=== PATIENT | male | born 1965 | race Caucasian/White ===

== ENCOUNTER → 2022-09-21 | Outpatient (CLI) | payer OTHER ==
--- NOTE | 2022-09-21 14:22 | P.SLEEP ---
History of Present Illness DATE: 09/21/2022 CONSULTATION/NEW PATIENT EVALUATION HISTORY OF PRESENT ILLNESS/SLEEP-WAKE EVALUATION: 56-year-old gentleman had been evaluated in the sleep center for obstructive sleep apnea hypopnea syndrome. Patient has history of obstructive sleep apnea diagnosed in 2008. At that time it was complex sleep apnea with apnea-hypopnea index more than 80 times per hour. Patient was on treatment to with BiPAP. BiPAP unit is broken. SLEEP SCHEDULE: Usually sleep schedule from 10 PM to 5:45 AM on working days and from 11 PM to 7 AM on weekend. FALLING ASLEEP: No problems with the falling to sleep. DURING SLEEP: Patient has loud snoring, multiple awakenings from sleep. No history of hypnogogical hallucinations, sleep paralysis, or cataplexy. DURING THE DAY/WAKE STATE: In the morning patient wake up tired, falling asleep during the day. Fingal sleepiness scale is increased to 11. Usually patient doesn't take naps. PAST MEDICAL HISTORY: Hypertension, diabetes mellitus. PAST SURGICAL HISTORY: Lasic eye surgery. MEDICATIONS: Metformin 1000 mg twice a day, glimepiride 2 mg twice a day, lisinopril-hydrochlorothiazide 20-12.5 mg once a day. SOCIAL HISTORY: Negative for smoking, alcohol consumption occasional. FAMILY HISTORY: Hypertension, cancer, diabetes. REVIEW OF SYSTEMS: Loud snoring, multiple awakenings from sleep, sleepiness during the day. No fevers. No double vision. No recent chest pain. No shortness of breath. No abdominal pain. No bleeding episodes. No blood in urine. No seizu re episodes. PHYSICAL EXAMINATION: GENERAL: A pleasant patient without any distress. VITAL SIGNS: BP on 49/103 , HR 101 , RR 16 , weight 263.2 pounds, height 5 foot 10.5 inches, body mass index 37.2 . HEENT: PERRLA, EOMI. Evaluation of oropharynx showed tongue protrudes midline, low position of soft palate Mallampati 4. NECK: Supple. No JVD. Thyroid is not palpable. 20-1/4 inches in circumference. LUNGS: Clear to percussion and to auscultation. Good air exchange. No wheezing or rhonchi. HEART: S1, S2 regular. No murmurs, gallops or rubs. ABDOMEN: Soft and nontender. Bowel sounds are present. No organomegaly appreciated. Obese. EXTREMITIES: No clubbing or cyanosis. 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 Cranial nerves 2 to 7 intact. There is no fasciculation or atrophy noted. No focal deficits observed. ASSESSMENT: 1. Loud snoring, multiple awakenings from sleep, extremely low position of soft palate Mallampati 4, extremely wide neck 20-1/4 inches, history of obstructive sleep apnea. Obstructive sleep apnea hypopnea syndrome. 2. Obesity, BMI 37.2. 3. Hypertension. 4. Diabetes mellitus. 5 status post Lasix eye surgery in the past. PLAN: 1. Polysomnography for evaluation of patient's breathing during sleep. 2. CPAP/BiPAP titration if sleep study confirms obstructive sleep apnea- hypopnea syndrome. 3. Preferable position during sleep on the side. 4. No driving if patient feels any sleepiness. Patient is aware of civil and criminal liability for unsafe driving. 5. Sleep hygiene with regular sleep time for at least 7.5-8 hours. 6. Watching and losing weight. Thank you very much for referring this patient for consultation. Sincerely, Franki Laird MD, PhD, FAASM. Diplomat of [place] [employer], Sleep Medicine Board by [place] [employer] [place] [employer] Reexaminer of [facility] Sleep Note - Sleep Note Sleep Note: Temperature: Pulse Rate: Respiratory Rate: Blood Pressure: SpO2: Height: Weight: BMI: Neck Circumference:
== END ==
LOC: 3 N SLEEP 13:29
PROVIDERS: ATTEND Internal Medicine
DX: G47.33 Obstructive sleep apnea (adult) (pediatric) (principal); E66.9 Obesity, unspecified; I10 Essential (primary) hypertension; E11.9 Type 2 diabetes mellitus without complications; Z68.37 Body mass index [BMI] 37.0-37.9, adult; Z99.89 Dependence on other enabling machines and devices; Z79.84 Long term (current) use of oral hypoglycemic drugs; Z79.899 Other long term (current) drug therapy; Z98.890 Other specified postprocedural states
CPT/HCPCS: 99202

== ENCOUNTER 2022-12-12 19:48 | Outpatient (CLI) | payer OTHER | END 2022-12-13 06:00 | disposition home or self-care (01) | LOC: 3 N SLEEP 19:48 | PROVIDERS: ATTEND Internal Medicine | DX: G47.33 Obstructive sleep apnea (adult) (pediatric) (principal) | CPT/HCPCS: 95811 ==

== ENCOUNTER → 2023-03-01 | Outpatient (CLI) | payer OTHER ==
--- NOTE | 2023-03-01 15:16 | P.PN ---
Subjective DATE: 03/01/2023 FOLLOW UP VISIT. Patient with obstructive sleep apnea hypopnea syndrome return to sleep center for follow-up visit. Recently patient had sleep study which documented obstructive sleep apnea hypopnea syndrome. Patient was initiated on BPAP therapy and today is first visit after treatment was started. Patient was able to use BPAP equipment every night for the whole night. The patient does not have significant problems with the mask, PAP pressure and humidification. Alpine sleepiness scale is 8, which is normal, improved comparing with the Alpine Sleepiness Scale before treatment when it was 11. I checked information from BPAP unit. BPAP unit pressure maximal inspiratory pressure 21, minimal expiratory pressure 10, pressure-support 4, average pressure 14.4 over 10.4 cm H2O. Usage is 100% and 90 % for more then 4 hours, average 6.25 hours per night. Leak is slightly increased to 36.2 l/m, patient has beer and mustache. Apnea Hypopnea Index is 1.5, which is normal. MEDICATIONS:1. Metformin 1000 mg twice a day 2. Lisinopril/hydrochlorothiazide 20-12 0.5 mg once a day 3. Glimepiride 2 mg twice a day During physical exam: GENERAL: A pleasant patient without any distress. VITAL SIGNS: BP 152/83, HR 97, RR 16 , weight 267.6, temperature 97.8, oxygen saturation at room air 99 . HEENT: PERRLA, EOMI.low position of soft palate, Mallapati 4 . NECK: Supple. No JVD. LUNGS: Clear to percussion and to auscultation. Good air exchange. No wheezing or rhonchi. HEART: S1, S2 regular. ABDOMEN: Soft and nontender. Slightly obese EXTREMITIES: No clubbing or cyanosis. 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 No focal deficit. Impressions: 1. Severe obstructive sleep apnea-hypopnea syndrome, apnea-hypopnea index 100.0 . Patient demonstrated great compliance with treatment, benefiting from treatment, normal respiration on BiPAP. 2. Obesity, patient increased his weight on 4 pounds comparing with previous visit. 3. Diabetes mellitus. 4. Hypertension. 5. Status post Lasic eye surgery.. Plan: 1. Continue using PAP equipment every night for the whole night. 2. To change air filter at least 1-2 times per month. 3. PAP unit should stay lower then position of the head. 4. Advised patient to remove all remaining water from humidifier canister daily and make it dry after each usage. Refill canister with fresh distilled water before each usage. 5. Sleep hygiene with regular time in bed for at least 8 hours. 6. Precautions related to driving. No driving if feel any sleepiness. 7. I will maintain prescription for PAP supplies including mask, tube, filters. 8. Follow up visit in 6 months or earlier if patient has any problems. 9. Watching and losing weight. Thank you very much for allowing me to participate in the management of your patient. Franki Laird MD, PhD, FAASM. Diplomat of [place] [employer], Sleep Medicine Board by [place] [employer] Change Management Specialist of [facility] [place]
== END ==
LOC: 3 N SLEEP 14:35
PROVIDERS: ATTEND Internal Medicine
DX: G47.33 Obstructive sleep apnea (adult) (pediatric) (principal); E11.9 Type 2 diabetes mellitus without complications; E66.9 Obesity, unspecified; I10 Essential (primary) hypertension; Z98.890 Other specified postprocedural states; Z99.89 Dependence on other enabling machines and devices; Z79.84 Long term (current) use of oral hypoglycemic drugs
CPT/HCPCS: 99212

== ENCOUNTER → 2023-11-09 | Outpatient (CLI) | payer OTHER ==
[2023-11-09 11:13] VITALS: BP 150/88; PULSE 78; RESP 16; TEMP 98.1
--- NOTE | 2023-11-09 11:44 | P.PROGSL ---
Subjective DATE: 11/09/2023 FOLLOW UP VISIT. Patient with obstructive sleep apnea hypopnea syndrome return to sleep center for follow-up visit. Information from previous visit have been reviewed. Patient lost more than 20 pounds and using CPAP equipment less than before. Patient is using PAP equipment most of the nights, getting PAP supplies in time. The patient does not have significant problems with the mask, PAP unit and humidification. Mellen sleepiness scale is borderline 9. I checked information from PAP unit. PAP unit pressure maximal inspiratory pressure 21, minimal expiratory pressure 10, pressure support 4, average pressure 14.7/10.7 cm H2O. Usage is 50% for more then 4 hours, average 6 hours per night. Leak is significantly increased to 47 l/m. Apnea Hypopnea Index is 1.7, which is normal. MEDICATIONS have been reviewed, please see below. During physical exam: GENERAL: A pleasant patient without any distress. VITAL SIGNS: Please see below, weight is 246 lbs. HEENT: PERRLA, EOMI.low position of soft palate, Mallapati 4 . NECK: Supple. No JVD. LUNGS: Clear to percussion and to auscultation. Good air exchange. No wheezing or rhonchi. HEART: S1, S2 regular. ABDOMEN: Soft and nontender.[] EXTREMITIES: No clubbing or cyanosis. 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 No focal deficit. Impressions: 1. Obstructive sleep apnea-hypopnea syndrome. Patient demonstrated borderline compliance with treatment, benefiting from treatment. 2. Obesity, body mass index 35.2, patient lost 21 pounds comparing with previous visit. 3. Hypertension. 4. Diabetes mellitus. 5. Status post LASEK eye surgery. I changed maximal inspiratory pressure down to 18 cm of water. Plan: 1. Continue using PAP equipment every night for the whole night. To get new CPAP mask. 2. Sleep hygiene with regular time in bed for at least 7.5-8 hours 3. PAP unit should stay lower then position of the head. 4. Advised patient to remove all remaining water from humidifier canister daily and make it dry after each usage. Refill canister with fresh distilled water before each usage. 5. Watching and continue losing weight weight. 6. Precautions related to driving. No driving if feel any sleepiness. 7. I will maintain prescription for PAP supplies including mask, tube, filters. 8. Follow up visit in 6 months or earlier if patient has any problems. 9. After losing more weight we may consider to repeat sleep study to reevaluate patient breathing. Thank you very much for allowing me to participate in the management of your patient. Franki Laird MD, PhD, FAASM. Diplomat of [place] [employer], Sleep Medicine Board by [place] [employer] Aboriginal Liaison Officer of [facility] [place] Objective - Vital Signs Vital Signs: Vital Signs Temp 98.1 F 11/09/23 11:12 Pulse 78 11/09/23 11:12 Resp 16 11/09/23 11:12 BP 150/88 11/09/23 11:12 Pulse Ox 99 11/09/23 11:12 FiO2 Intake & Output 11/08/23 11/09/23 11/09/23 18:59 06:59 18:59 Weight 111.584 kg Home Medications: Home Medications Medication Instructions Recorded Confirmed Type Glimepiride 2 mg PO BID 11/09/23 11/09/23 History Lisinopril-Hctz 20-12.5 mg See Rx Instructions .ROUTE .COMPLEX 11/09/23 11/09/23 History [Zestoretic 20-12.5] metFORMIN HCL 1,000 mg PO BID 11/09/23 11/09/23 History
== END ==
LOC: 3 N SLEEP 11:03
PROVIDERS: ATTEND Internal Medicine
CPT/HCPCS: 99212

== ENCOUNTER 2024-09-03 07:15 | Day surgery (SDC) | payer OTHER ==
[2024-09-03 07:45] VITALS: TEMP 97.6
[2024-09-03] MEDS: LACTATED RINGERS 1,000 ML IV SCH (07:53)
[2024-09-03] MEDS: IV FLUID CONTINUATION 1,000 ML IV ONE (07:54)
[2024-09-03 07:55] LABS: Glucose,Whole Blood 161 mg/dL (70-110)
[2024-09-03] MEDS ORDERED: PROPOFOL 10 MG/ML 20 ML VIAL IV ONE (08:35)
--- NOTE | 2024-09-03 08:54 | P.PCN ---
Date of Procedure: 09/03/24 Procedure(s) Performed: BRIEF HISTORY: Patient is a 58-year-old pleasant white male scheduled for an elective colonoscopy as a part of screening for prior history of colon polyps. Last colonoscopy was in July 2020 and was noted to have tubular adenoma. PROCEDURE PERFORMED: Colonoscopy with snare polypectomy. PREOPERATIVE DIAGNOSIS: Screening for prior history of colon polyps.. IV sedation per Anesthesia. PROCEDURE: After informed consent was obtained, the patient, was brought into the endoscopy unit. IV sedation was administered by Anesthesia under continuous monitoring. Digital rectal examination was normal. Initially the Olympus CF-160 flexible video colonoscope was then inserted in the rectum, gradually advanced into the cecum without any difficulty. Careful examination was performed as the scope was gradually being withdrawn. Ileocecal valve and the appendiceal orifice were visualized and appeared normal. Prep was excellent. Mucosa of the cecum, ascending colon, appeared normal. In the transverse colon there was a 6 mm polyp was removed by cold snare polypectomy. In the descending colon there was a a 5 mm and an 8 mm polyp removed by cold snare polypectomy. In the sigmoid colon there was a 6 mm polyp removed by cold snare polypectomy. In the rectosigmoid colon there was a 4 mm polyp removed by cold snare polypectomy. Scattered sigmoid diverticulosis seen and rectum appeared normal. Retroflexion was performed in the rectum and no lesions were seen. The patient tolerated the procedure well. IMPRESSION: 6 mm transverse colon polyp status post cold snare polypectomy 5 mm and 8 mm descending colon polyp status post cold snare polypectomy 6 mm sigmoid colon polyp status post cold snare polypectomy 4 mm rectosigmoid polyp status post cold snare polypectomy Scattered sigmoid diverticulosis RECOMMENDATIONS: Findings of this examination were discussed with the patient as well as his family. He was advised to follow-up with the biopsy results. If the biopsy reveals adenoma he can have repeat colonoscopy in 3 years..
[2024-09-03 09:16] VITALS: BP 151/96; PULSE 68; RESP 14
== END 2024-09-03 09:32 | disposition home or self-care (01) ==
LOC: ORWHC2ENDO 07:15
PROVIDERS: ATTEND Internal Medicine Gastroenterology
DX: Z12.11 Encounter for screening for malignant neoplasm of colon (principal); D12.4 Benign neoplasm of descending colon; D12.5 Benign neoplasm of sigmoid colon; K62.1 Rectal polyp; K57.30 Diverticulosis of large intestine without perforation or abscess without bleeding; I10 Essential (primary) hypertension; E11.9 Type 2 diabetes mellitus without complications; Z79.84 Long term (current) use of oral hypoglycemic drugs; Z79.899 Other long term (current) drug therapy
CPT/HCPCS: 88305; 45385; J2704